=== PATIENT | female | born 1990 | race African-American/Black ===

== ENCOUNTER 2020-04-06 10:26 | Emergency (ER) | payer MEDICAID ==
[~2020-04-06] VITALS: Ht 165.1 cm; Wt 64.0 kg
[2020-04-06] MEDS ORDERED: LORAZEPAM 0.5MG TABLET PO ONE (11:30)
[2020-04-06 12:20] VITALS: BP 133/78
== END 2020-04-06 12:21 | disposition home or self-care (01) ==
LOC: ER 10:42
DX: F41.9 Anxiety disorder, unspecified (principal); R00.0 Tachycardia, unspecified; Z90.49 Acquired absence of other specified parts of digestive tract; Z98.890 Other specified postprocedural states
CPT/HCPCS: 81025; 99283